=== PATIENT | female | born 1995 | race Caucasian/White ===

== ENCOUNTER → 2021-09-10 | Outpatient (CLI) | payer BC ==
--- NOTE | 2021-09-10 10:51 | KCIC ---
EXAMINATION: XR ELBOW COMPLETE_LEFT 3+VIEWS. HISTORY: 26 years Female Reason: Left elbow pain. Pt fell 09/09/21. / Spl. Instructions: Posterior e lbow pain with extension of arm. / History: . COMPARISON: None. FINDINGS: There is elevation of the catheter anterior and posterior fat pads suggestive of an elbow effusion. N o fracture, dislocation or radiopaque foreign body. The joint spaces and articular surfaces appear unremarkable. IMPRESSION: Evidence of the left elbow effusion with no fracture identified. If significant the left elbow pain p ersists, then repeat radiographs in 10 days is suggested. Electronically signed by: Michael Linares MD (09/10/2021 10:49 AM) [id number]
== END ==
LOC: KCIC 10:24
PROVIDERS: ATTEND Nurse Practitioner Family
DX: M25.422 Effusion, left elbow (principal); W19.XXXA Unspecified fall, initial encounter
CPT/HCPCS: 73080